=== PATIENT | female | born 1950 | race Caucasian/White ===

== ENCOUNTER 2016-06-21 10:35 | Emergency (ER) | payer OTHER ==
[~2016-06-21] VITALS: Ht 167.6 cm; Wt 58.1 kg
[2016-06-21 10:35] VITALS: BP 110/64; PULSE 96; RESP 19; TEMP 99.1; O2SAT 97
[2016-06-21] MEDS ORDERED: IPRATROPIUM/ALBUTEROL SULFATE 3 ML AMPUL.NEB ONE (10:56)
[2016-06-21] MEDS ORDERED: IPRATROPIUM BROM 0.5 MG/2.5 ML VIAL.NEB (ATROVENT) INH ONE (11:00)
[2016-06-21] MEDS ORDERED: ALBUTEROL SULFATE 0.083% 2.5 MG/3 ML VIAL.NEB INH ONE (11:00)
[2016-06-21 12:23] VITALS: BP 113/56; PULSE 82; RESP 16; TEMP 98; O2SAT 99
== END 2016-06-21 12:45 | disposition home or self-care (01) ==
LOC: SED 10:35
DX: J45.909 Unspecified asthma, uncomplicated (principal)
CPT/HCPCS: 94640; 99283